=== PATIENT | female | born 1935 | race Caucasian/White ===

== ENCOUNTER 2016-08-19 05:14 | Day surgery (SDC) | payer MEDICARE, OTHER ==
[~2016-08-19 05:14] MED LIST: AMIT75 PO; ARIMIDEX1 PO; ASAB PO; B COMPLETE PO; B12250T PO; CYANO1000T PO; ESTRACE0.5 MG PO; ESTRACE1 MG PO; FIBER THERAPY PO; FLAXSEED OIL1000 MG PO; FLAXSEED OIL1200 MG PO; KLOR-CON 1010 MEQ PO; KLOR-CON M1010 MEQ PO; L20 PO; L40 PO; LOP50 PO; LORTAB10 PO; OS500 PO; OTC IRON PO; PLAVIX PO; PRILO PO; ULTRAM50 PO; VITD PO
== END 2016-08-19 14:11 | disposition home or self-care (01) ==
LOC: SDC 05:14
PROVIDERS: Orthopaedic Surgery
PROC: 3E0R3BZ Introduction of Anesthetic Agent into Spinal Canal, Percutaneous Approach (ICD-10-PCS; 2016-08-19)
PROC: 3E0R33Z Introduction of Anti-inflammatory into Spinal Canal, Percutaneous Approach (ICD-10-PCS; principal; 2016-08-19 08:45)
DX: M54.16 Radiculopathy, lumbar region (principal); M54.5 Low back pain; Z88.8 Allergy status to other drugs, medicaments and biological substances; Z86.73 Personal history of transient ischemic attack (TIA), and cerebral infarction without residual deficits; H91.90 Unspecified hearing loss, unspecified ear; Z98.41 Cataract extraction status, right eye; Z96.1 Presence of intraocular lens; Z90.89 Acquired absence of other organs; I10 Essential (primary) hypertension; I34.1 Nonrheumatic mitral (valve) prolapse; I49.9 Cardiac arrhythmia, unspecified; I48.91 Unspecified atrial fibrillation; G47.33 Obstructive sleep apnea (adult) (pediatric); Z98.890 Other specified postprocedural states; K21.9 Gastro-esophageal reflux disease without esophagitis; K64.9 Unspecified hemorrhoids; Z90.49 Acquired absence of other specified parts of digestive tract; E03.9 Hypothyroidism, unspecified; Z90.5 Acquired absence of kidney
CPT/HCPCS: J2250; J3010; Q9967